=== PATIENT | female | born 1965 | race Caucasian/White ===

== ENCOUNTER 2016-07-31 10:21 | Outpatient (CLI) ==
[2014-07-30 14:25] VITALS: BMI 83.2
[2016-07-31 10:27] LABS: BASOPHILS % (AUTO) 0.5 % (0.0-3.0); EOSINOPHILS # (AUTO) 0.1 K/ul (0.0-0.7); EOSINOPHILS % (AUTO) 1.4 % (0.0-7.0); HEMATOCRIT 35.5 % (37.0-47.0); HEMOGLOBIN 11.7 g/dl (12.0-16.0); IMMATURE GRANULOCYTE % (AUTO) 0.2 % (0.0-5.0); LYMPHOCYTES # (AUTO) 2.1 K/uL (0.60-3.4); LYMPHOCYTES % (AUTO) 33.7 (10.0-50.0); MEAN CORPUSCULAR VOLUME 94.2 fl (81.0-99.0); MONOCYTES # (AUTO) 0.6 K/uL (0.4-2.0); MONOCYTES % (AUTO) 8.7 (0-10); NEUTROPHILS # (AUTO) 3.5 K/ul (2.0-6.9); NEUTROPHILS % (AUTO) 55.5; PLATELET COUNT 156 10^3/uL (140-440); RED BLOOD COUNT 3.77 10^6/ul (4.20-5.40); WHITE BLOOD COUNT 6.29 K/ul (4.6-10.2)
[2016-07-31 10:46] LABS: ALBUMIN 3.2 g/dL (3.4-5.0); ALBUMIN/GLOBULIN RATIO 0.86; ANION GAP 13.4; BILIRUBIN,TOTAL 0.51 mg/dL (0.00-1.20); BUN/CREATININE RATIO 17.64; CALCIUM 8.7 mg/dL (8.2-10.2); CREATININE 1.02 mg/dL (0.60-1.30); POTASSIUM 4.4 mmol/L (3.5-5.10); TOTAL PROTEIN 6.9 g/dL (6.4-8.2)
== END 2016-07-31 10:22 | disposition home or self-care (01) ==
LOC: NONPT 10:21
PROVIDERS: ATTEND Family Medicine
DX: I11.0 Hypertensive heart disease with heart failure (principal); I50.9 Heart failure, unspecified; I48.91 Unspecified atrial fibrillation
CPT/HCPCS: 80053; 85025

== ENCOUNTER 2016-10-03 11:34 | Outpatient (CLI) | payer OTHER ==
[2014-07-30 14:25] VITALS: BMI 83.2
[2016-10-03 11:51] LABS: ANION GAP 17.3; BUN/CREATININE RATIO 12.35; CALCIUM 9.4 mg/dL (8.2-10.2); CREATININE 0.89 mg/dL (0.60-1.30); POTASSIUM 4.3 mmol/L (3.5-5.10)
== END 2016-10-03 11:35 | disposition home or self-care (01) ==
LOC: NONPT 11:34
PROVIDERS: ATTEND Family Medicine
DX: I50.9 Heart failure, unspecified (principal); E11.9 Type 2 diabetes mellitus without complications; I48.91 Unspecified atrial fibrillation
CPT/HCPCS: 80048; 83036

== ENCOUNTER 2016-11-22 16:47 | Outpatient (CLI) | payer OTHER ==
[2014-07-30 14:25] VITALS: BMI 83.2
== END 2016-11-22 16:48 | disposition home or self-care (01) ==
LOC: AMBL 16:47
PROVIDERS: ATTEND Internal Medicine
DX: R07.9 Chest pain, unspecified (principal); R50.9 Fever, unspecified; H92.09 Otalgia, unspecified ear; I48.91 Unspecified atrial fibrillation; R10.2 Pelvic and perineal pain; S31.109A Unspecified open wound of abdominal wall, unspecified quadrant without penetration into peritoneal cavity, initial encounter

== ENCOUNTER 2017-02-27 20:18 | Outpatient (CLI) | payer OTHER ==
[2014-07-30 14:25] VITALS: BMI 83.2
[2017-02-27 20:27] LABS: BASOPHILS % (AUTO) 0.4 % (0.0-3.0); EOSINOPHILS # (AUTO) 0.1 K/ul (0.0-0.7); EOSINOPHILS % (AUTO) 1.2 % (0.0-7.0); HEMATOCRIT 34.7 % (37.0-47.0); HEMOGLOBIN 11.3 g/dl (12.0-16.0); IMMATURE GRANULOCYTE % (AUTO) 0.4 % (0.0-5.0); LYMPHOCYTES # (AUTO) 2.2 K/uL (0.60-3.4); LYMPHOCYTES % (AUTO) 27.2 (10.0-50.0); MEAN CORPUSCULAR HEMOGLOBIN 29.5 pg (27.0-31.0); MEAN CORPUSCULAR HGB CONC 32.6 (31.8-35.4); MEAN CORPUSCULAR VOLUME 90.6 fl (81.0-99.0); MONOCYTES # (AUTO) 0.9 K/uL (0.4-2.0); MONOCYTES % (AUTO) 10.6 (0-10); NEUTROPHILS # (AUTO) 4.9 K/ul (2.0-6.9); NEUTROPHILS % (AUTO) 60.2; PLATELET COUNT 203 10^3/uL (140-440); RED BLOOD COUNT 3.83 10^6/ul (4.20-5.40); WHITE BLOOD COUNT 8.05 K/ul (4.6-10.2)
[2017-02-27 20:48] LABS: ALBUMIN 3.2 g/dL (3.4-5.0); ALBUMIN/GLOBULIN RATIO 0.71; ANION GAP 15.6; BILIRUBIN,TOTAL 0.4 mg/dL (0.00-1.20); BUN/CREATININE RATIO 18.39; CALCIUM 9.6 mg/dL (8.2-10.2); CREATININE 0.87 mg/dL (0.60-1.30); POTASSIUM 4.6 mmol/L (3.5-5.10); TOTAL PROTEIN 7.7 g/dL (6.4-8.2)
== END 2017-02-27 20:19 | disposition home or self-care (01) ==
LOC: LAB 20:18 → NONPT 20:19
PROVIDERS: ATTEND Family Medicine
DX: L03.311 Cellulitis of abdominal wall (principal); E65 Localized adiposity; I50.9 Heart failure, unspecified; I48.91 Unspecified atrial fibrillation
CPT/HCPCS: 36415; 80053; 85025

== ENCOUNTER 2017-04-09 18:25 | Outpatient (CLI) | payer OTHER ==
[2014-07-30 14:25] VITALS: BMI 83.2
== END 2017-04-09 18:26 | disposition short-term general hospital (02) ==
LOC: AMBL 18:25
PROVIDERS: ATTEND Internal Medicine
DX: R52 Pain, unspecified (principal); R50.9 Fever, unspecified; R68.89 Other general symptoms and signs; E66.01 Morbid (severe) obesity due to excess calories; E11.9 Type 2 diabetes mellitus without complications

== ENCOUNTER 2017-05-20 11:24 | Outpatient (CLI) ==
[2014-07-30 14:25] VITALS: BMI 83.2
== END 2017-05-20 11:25 | disposition home or self-care (01) ==
LOC: NONPT 11:24
PROVIDERS: ATTEND Family Medicine
DX: I11.0 Hypertensive heart disease with heart failure (principal); I50.9 Heart failure, unspecified; I48.2 Chronic atrial fibrillation; B96.20 Unspecified Escherichia coli [E. coli] as the cause of diseases classified elsewhere; E11.40 Type 2 diabetes mellitus with diabetic neuropathy, unspecified; Z79.891 Long term (current) use of opiate analgesic
CPT/HCPCS: 80048; 85027

== ENCOUNTER 2017-05-27 11:54 | Outpatient (CLI) | payer OTHER ==
[2014-07-30 14:25] VITALS: BMI 83.2
== END 2017-05-27 11:55 | disposition home or self-care (01) ==
LOC: NONPT 11:54
PROVIDERS: ATTEND Family Medicine
DX: L03.311 Cellulitis of abdominal wall (principal); I11.0 Hypertensive heart disease with heart failure; I50.9 Heart failure, unspecified; I48.2 Chronic atrial fibrillation; B96.20 Unspecified Escherichia coli [E. coli] as the cause of diseases classified elsewhere; E11.9 Type 2 diabetes mellitus without complications; D64.9 Anemia, unspecified
CPT/HCPCS: 82607; 82728; 82746; 83540; 83550; 85045

== ENCOUNTER 2017-06-10 10:34 | Outpatient (CLI) | payer OTHER ==
[2014-07-30 14:25] VITALS: BMI 83.2
== END 2017-06-10 10:35 | disposition short-term general hospital (02) ==
LOC: AMBL 10:34
PROVIDERS: ATTEND Internal Medicine
DX: R40.4 Transient alteration of awareness (principal); R41.0 Disorientation, unspecified; R10.9 Unspecified abdominal pain; R14.0 Abdominal distension (gaseous); R55 Syncope and collapse; R11.2 Nausea with vomiting, unspecified; I95.9 Hypotension, unspecified; E11.65 Type 2 diabetes mellitus with hyperglycemia; E66.9 Obesity, unspecified